=== PATIENT | female | born 1985 | race Caucasian/White ===

== ENCOUNTER 2017-09-17 11:37 | Emergency (ER) | payer BC ==
[~2017-09-17] VITALS: Ht 170.2 cm; Wt 104.1 kg
[~2017-09-17 11:37] MED LIST: CIPROFLOXACN500 MG PO; MOTRIN800 MG PO; ULTRAM50 M1 PO
[2017-09-17 13:28] LABS: URINE BILIRUBIN - DIPSTICK NEGATIVE (NEGATIVE); URINE BLOOD DIPSTICK TRACE-INTACT (NEGATIVE); URINE COLOR YELLOW; URINE GLUCOSE - DIPSTICK NEGATIVE (NEGATIVE); URINE KETONE NEGATIVE (NEGATIVE); URINE LEUK ESTERASE NEGATIVE (NEGATIVE); URINE NITRITE - DIPSTICK NEGATIVE (Negative); URINE PH 6.5 (4.5-8.0); URINE PROTEIN - DIPSTICK NEGATIVE (NEG-TRACE); URINE UROBILINOGEN - DIPSTICK 0.2 E.U./dL (0.2)
[2017-09-17 13:29] LABS: HEMATOCRIT 38.4 % (37.0-47.0); HEMOGLOBIN 11.9 g/dl (12.0-16.0); IMMATURE GRANULOCYTES 0.5 % (0.0-1.0); MEAN CELL VOLUME 78.9 fL CALC (80.0-100.0); MEAN CORPUSCULAR HGB 24.4 pG CALC (26.0-32.0); NEUT# 8.14 thou/uL (2.00-7.15); RED BLOOD COUNT 4.87 mill/uL (4.20-5.60); RED CELL DISTRI WIDTH 15.3 % (11.5-15.5)
[2017-09-17 13:38] LABS: URINE CLARITY CLEAR
[2017-09-17 13:42] LABS: ALBUMIN 4.2 g/dL (3.2-5.0); ALKALINE PHOSPHATASE 103 u/l (38-126); AMYLASE 64 u/l (30-110); ANION GAP 15 (6-22 (CALC)); BILIRUBIN, TOTAL 0.3 mg/dL (0.0-1.4); BUN 7 mg/dL (7-17); BUN/CREATININE RATIO 12 (12-20 (CALC)); CARBON DIOXIDE 26 mmol/l (22-30); CHLORIDE 105 mmol/l (95-108); CREATININE 0.6 mg/dL (0.5-1.0); GFR > 60 ML/MIN (>=60 (CALC)); GFR FOR AFR.AMER. > 60 ML/MIN (>=60 (CALC)); LIPASE 48 u/l (23-300); POTASSIUM 4.3 mmol/l (3.5-5.1); SGOT/AST 20 u/l (14-36); SGPT/ALT 28 u/l (9-52); SODIUM 141 mmol/l (137-146); TOTAL PROTEIN 7.4 g/dL (6.3-8.2)
[2017-09-17 13:54] LABS: MYOGLOBIN 31 ng/mL (0 - 62)
[2017-09-17] MEDS ORDERED: ZOFRAN ODT4 MG PO (16:08)
[2017-09-17] MEDS ORDERED: TRAMADOL HYDROC50 MG PO (16:08)
[2017-09-17 16:58] VITALS: BP 107/65
== END 2017-09-17 16:35 | disposition home or self-care (01) | DRG 392 ==
LOC: ED 11:37
PROVIDERS: Emergency Medicine
DX: R10.11 Right upper quadrant pain (principal); R11.2 Nausea with vomiting, unspecified
CPT/HCPCS: Q9967

== ENCOUNTER 2018-08-20 10:24 | Emergency (ER) | payer BC, OTHER ==
[~2018-08-20] VITALS: Ht 170.2 cm; Wt 90.0 kg
[~2018-08-20 10:24] MED LIST changes: +TRAMADOL HYDROC50 MG PO; +ZOFRAN ODT4 MG PO
[2018-08-20] MEDS ORDERED: MOTRIN400 MG PO (12:12)
[2018-08-20 12:23] VITALS: BP 121/70
== END 2018-08-20 12:34 | disposition home or self-care (01) | DRG 563 ==
LOC: ED 10:24
DX: S96.912A Strain of unspecified muscle and tendon at ankle and foot level, left foot, initial encounter (principal); F17.210 Nicotine dependence, cigarettes, uncomplicated; X58.XXXA Exposure to other specified factors, initial encounter